=== PATIENT | female | born 1980 | race African-American/Black ===

== ENCOUNTER 2019-05-20 14:57 | Emergency (ER) | payer SELFPAY ==
--- NOTE | 2019-05-20 15:53 | ER Document Report ---
ED General - General Chief Complaint: Psych Problem Stated Complaint: AMS Time Seen by Provider: 05/20/19 15:48 Mode of Arrival: Medic Information source: Emergency Med Personnel Cannot obtain history due to: Altered mental status Notes: 39-year-old black female arrives by EMS with the following story. Patient arrives by EMS after police were called at the [facility] with a female sitting in the parkinglot. Police were called x2 and patient was charged with trespassing after the third time. Patient reports to EMS she was supposed to be at the [facility] and rather than [facility]. Patient is on probation in [place] from [place] per [place] chief knowledge officer.( air defense control officer called the cousin and was given this information to him. ) Patient was seen Tuesday night at [facility] and kept there until 1445 the next day when she was released. Patient rented a [employer] trailer and was driving around [place] without anything in it. This story is from this Silvina Cardona also from officer [place]ahomy spoke to Dr. Busch about this case. EMS were called and patient was placed in the back of the EMS bus and then patient became quite combative. Patient was given ketamine 400 IM and patient became more aggressive and then was given IM 5 mg Versed TRAVEL OUTSIDE OF THE [place] IN LAST 30 DAYS: No - unKnown because patient has decreased sensorium - HPI Onset: Just prior to arrival Onset/Duration: Sudden Quality of pain: No pain Severity: None Pain Level: Denies Associated symptoms: Weakness Exacerbated by: Denies Relieved by: Denies Similar symptoms previously: Yes Recently seen / treated by doctor: Yes - Related Data Allergies/Adverse Reactions: No Known Allergies Allergy (Verified 05/20/19 15:23) Past Medical History - General Information source: Emergency Med Personnel - Silvina Bowers - Social History Smoking Status: Unknown if Ever Smoked Chew tobacco use (# tins/day): No Smoking Education Provided: No Frequency of alcohol use: unKnown Drug Abuse: Other - Unknown Lives with: Family - [facility] Family History: Reviewed & Not Pertinent, Other - unKnown Patient has suicidal ideation: No Patient has homicidal ideation: No Review of Systems - Review of Systems Constitutional: No symptoms reported EENT: No symptoms reported Cardiovascular: No symptoms reported Respiratory: No symptoms reported Gastrointestinal: No symptoms reported Genitourinary: No symptoms reported Female Genitourinary: No symptoms reported Musculoskeletal: No symptoms reported Skin: No symptoms reported Hematologic/Lymphatic: No symptoms reported Neurological/Psychological: See HPI, Weakness, Other - Paranoid delusions Physical Exam - Vital signs Vitals: Pulse Ox 96 05/20/19 15:03 Interpretation: Hypertensive - HEENT Head: Normocephalic Eyes: Normal Conjunctiva: Normal Cornea: Normal Extraocular movements intact: Yes Eyelashes: Normal Pupils: PERRL - Respiratory Respiratory status: No respiratory distress Chest status: Nontender Breath sounds: Normal Chest palpation: Normal - Cardiovascular Rhythm: Regular Heart sounds: Normal auscultation Murmur: No Friction rub: No Erasto's crunch: No - Abdominal Inspection: Normal Distension: No distension Bowel sounds: Normal Tenderness: Nontender - Back Back: Normal - Neurological Neuro grossly intact: No - Patient somnolent upon arrival after Versed and ketamine per EMS Cognition: Confused Orientation: Disoriented to person, Disoriented to place, Disoriented to time, Disoriented to events Shaun Coma Scale Eye Opening: To Pain [place] Coma Scale Verbal: Inappropriate Course - Re-evaluation Re-evalutation: 05/20/19 16:12 DrGill also consulted. - Vital Signs Vital signs: Temp Pulse Resp BP Pulse Ox 98.8 F 12 141/87 H 100 05/20/19 15:06 05/20/19 19:05 05/20/19 19:05 05/20/19 19:05 - Laboratory Result Diagrams: 05/20/19 15:05 05/20/19 15:05 Laboratory results interpreted by me: 05/20/19 05/20/19 05/20/19 15:05 15:05 17:20 Hgb 11.7 L MCV 78 L MCH 25.1 L RDW 16.3 H BUN 5 L Glucose 130 H Ur Leukocyte Esterase MODERATE H Salicylates < 1.0 L Acetaminophen < 10 L - Diagnostic Test Radiology reviewed: Reports reviewed Critical Care Note - Critical Care Note Total time excluding time spent on procedures (mins): 90 Comments: Patient to be kept as a psychiatric hold Discharge - Discharge Clinical Impression: Schizophrenia Qualifiers: Schizophrenia type: unspecified Qualified Code(s): F20.9 - Schizophrenia, unspecified Condition: Good Disposition: OTHER Additional Instructions: This patient to be re- evaluationed by psych
[2019-05-20 16:12] LABS: ABSOLUTE BASOPHILS # (AUTO) 0.1 10^3/uL (0.0-0.2); ABSOLUTE EOSINOPHILS # (AUTO) 0.1 10^3/uL (0.0-0.6); ABSOLUTE LYMPHOCYTES (AUTO) 2.6 10^3/uL (0.5-4.7); ABSOLUTE NEUT (AUTO) 6.2 10^3/uL (1.7-8.2); BASOPHILS % (AUTO) 0.9 % (0-2); EOSINOPHILS % (AUTO) 1.1 % (0-6); HEMATOCRIT 36.3 % (36.0-47.0); HEMOGLOBIN 11.7 g/dL (12.0-15.5); MEAN CORPUSCULAR HEMOGLOBIN 25.1 pg (27.0-33.4); MEAN CORPUSCULAR HGB CONC 32.2 g/dL (32.0-36.0); MEAN CORPUSCULAR VOLUME 78 fl (80-97); MONOCYTES % (AUTO) 10.1 % (3-13); PLATELET COUNT 304 10^3/uL (150-450); RED BLOOD COUNT 4.65 10^6/uL (3.72-5.28); RED CELL DISTRIBUTION WIDTH 16.3 % (11.5-14.0); SEGMENTED NEUTROPHILS % (AUTO) 61.9 % (42-78); TOTAL CELLS COUNTED % (AUTO) 100 %
[2019-05-20 16:15] LABS: ALBUMIN 3.7 g/dL (3.5-5.0); ALKALINE PHOSPHATASE 84 U/L (38-126); ANION GAP 10 (5-19); ASPARTATE AMINO TRANSFERASE 22 U/L (14-36); BILIRUBIN,TOTAL 0.2 mg/dL (0.2-1.3); BLOOD UREA NITROGEN 5 mg/dL (7-20); CALCIUM 9.3 mg/dL (8.4-10.2); CARBON DIOXIDE 23 mmol/L (22-30); CHLORIDE 107 mmol/L (98-107); GLUCOSE 130 mg/dL (75-110); POTASSIUM 4.4 mmol/L (3.6-5.0); TOTAL PROTEIN 6.7 g/dL (6.3-8.2)
[2019-05-20 16:17] LABS: ACETAMINOPHEN < 10 ug/mL (10-30); ALCOHOL < 10 mg/dL (NONE DETECTED); SALICYLATE < 1.0 mg/dL (2.0-20.0)
[2019-05-20 17:45] LABS: APPEARANCE,URINE SLIGHTLY-CLOUDY; BILIRUBIN,URINE NEGATIVE (NEGATIVE); COLOR,URINE YELLOW; GLUCOSE, URINE NEGATIVE (NEGATIVE); KETONES,URINE NEGATIVE (NEGATIVE); LEUKOCYTE ESTERASE,URINE MODERATE (NEGATIVE); NITRITE,URINE NEGATIVE (NEGATIVE); PROTEIN,URINE NEGATIVE (NEGATIVE); URINE SPECIFIC GRAVITY 1.008; UROBILINOGEN,URINE NEGATIVE mg/dL (<2.0)
[2019-05-20 17:55] LABS: URINE AMPHETAMINES SCREEN NEGATIVE; URINE BARBITURATES SCREEN NEGATIVE; URINE COCAINE SCREEN NEGATIVE; URINE MARIJUANA (THC) SCREEN NEGATIVE; URINE METHADONE SCREEN NEGATIVE; URINE PHENCYCLIDINE SCREEN NEGATIVE
[2019-05-20 17:58] LABS: URINE BENZODIAZEPINES SCREEN UNCONFIRMED POSITIVE
--- NOTE | 2019-05-20 19:07 | RADIOLOGY REPORT (SQ) ---
EXAM DESCRIPTION: CT HEAD WITHOUT COMPLETED DATE/TIME: 05/20/2019 6:57 pm REASON FOR STUDY: ms change COMPARISON: None. TECHNIQUE: Axial images acquired through the brain without intravenous contrast. Images reviewed wi th bone, brain and subdural windows. Additional sagittal and coronal reconstructions were generated. Images stored on PACS. All CT scanners at this facility use dose modulation, iterative reconstruction, and/or weight based d osing when appropriate to reduce radiation dose to as low as reasonably achievable (ALARA). [facility]: Dose Right [facility]: CareDose [facility]: Dose Right [facility]: Teradose 4D [facility]: Sensorin RADIATION DOSE: CT Rad equipment meets quality standard of care and radiation dose reduction techniq ues were employed. CTDIvol: 53.2 mGy. DLP: 964 mGy-cm. mGy. LIMITATIONS: Motion artifact. FINDINGS: VENTRICLES: Normal size and contour. CEREBRUM: No masses. No hemorrhage. No midline shift. No evidence for acute infarction. Normal gra y/white matter differentiation. No areas of low density in the white matter. CEREBELLUM: No masses. No hemorrhage. No alteration of density. No evidence for acute infarction. EXTRAAXIAL SPACES: No fluid collections. No masses. ORBITS AND GLOBE: No intra- or extraconal masses. Normal contour of globe without masses. CALVARIUM: No fracture. PARANASAL SINUSES: No fluid or mucosal thickening. SOFT TISSUES: No mass or hematoma. OTHER: No other significant finding. IMPRESSION: NO ACUTE INTRACRANIAL IMAGING FINDINGS. EVIDENCE OF ACUTE STROKE: NO. COMMENT: Quality ID # [id number]: Final reports with documentation of one or more dose reduction techniques (e.g., Automated exposure control, adjustment of the mA and/or kV according to patient size, use of iterative reconstruction technique) TECHNICAL DOCUMENTATION: JOB ID: [id number]- All Rights Reserved Reading location - IP/workstation name: [email or web address]
--- NOTE | 2019-05-21 00:17 | ER Document Report ---
Doctor's Note Notes: 05/21/19 00:13 Patient was brought in by EMS following contact with [employer] in which she presented confused. Upon entering the ambulance, patient became combative requiring 400 mg of Ketamine, of which she had an adverse reaction, then requiring 2 mg of Ativan. Upon arrival to the ED the Patient was sleeping soundly and unavailable for evaluation. Please MH Note by Becca Riggs for collateral information. Patient is placed on IVC Petition.
--- NOTE | 2019-05-21 00:26 | EKG REPORT ---
SEVERITY:- NORMAL ECG - SINUS RHYTHM : Confirmed by: Deepthi Diallo 21-May-2019 00:25:54
[2019-05-21] MEDS ORDERED: LORAZEPAM 1 MG TABLET PO ONE (01:05)
[2019-05-21] MEDS ORDERED: BENZTROPINE MESYLATE 1 MG TABLET PO ONE (14:04)
[2019-05-21] MEDS ORDERED: CHLORPROMAZINE HCL 50 MG TABLET PO ONE (14:04)
--- NOTE | 2019-05-21 15:16 | EKG REPORT ---
SEVERITY:- NORMAL ECG - SINUS RHYTHM : Confirmed by: Mojgan Love MD 21-May-2019 15:16:02
--- NOTE | 2019-05-21 15:21 | ER Document Report ---
Doctor's Note Notes: 05/21/19 15:17 Patient was moved from room 18 to room 45. Patient is attempting to leave out of the room multiple times stating that she is going to go home. Patient is IVC'd. I did discuss the patient's case with Dr. Faith who is my supervising attending who recommends speaking with mental health in regards to giving her a dose of 50 mg of Thorazine IM. Patient did receive Thorazine 50 mg p.o. as a one-time dose about 1 hour ago as well as 1 mg of Cogentin at the same time. No other medications were ordered due to recommendations to obtain a new EKG as the mental health staff was concerned that her QTC was 441. A QTC of 441 is normal. We did repeat her EKG at 1415. Patient is in a sinus rhythm with a heart rate of 90, MT interval is 156, QT is 336 and QTc is 411. Patient has a normal axis deviation and does not appear to have any significant changes from her previous EKG. I did discuss this with mental health who will update the medication recommendations. Dr. Faith did recommend obtaining a [place] level as it appears the patient was on lithium 6 months ago. Per mental health staff the patient has not been on lithium for 6 months. They state they got this information from the significant other. 05/21/19 16:47 Mental health made recommendations in regards to psychiatric medications, I did discuss this with my attending, Dr. Faith - to include Thorazine 100 mg IM Q6 and Cogentin 1 mg IM BID. Will add these recommendations to med rec.
[2019-05-21] MEDS ORDERED: CHLORPROMAZINE HCL INJ 25 MG/1 ML AMPULE IM SCH (17:00)
--- NOTE | 2019-05-21 17:45 | PSYCHOLOGICAL NOTE ---
Psych Note - Psych Note Date seen by psych provider: 05/21/19 Time seen by psych provider: 08:40 Psych Note: Reason for Consult: AMS Patient reports the police brought her [facility] because "they decided I need to be evaluated." Patient is able to fully demonstrate orientation. She reports that she was in [place] however drove down to [facility] to live. She reports that she does not have family here however she is close with people in congregational. She reports she was once diagnosed with depression and then once with bipolar however does not believe she has a mental health diagnosis. Patient provides consent to her Nataliia to be contacted and provides contact information. Patient reports that she missed a congregational yesterday as services were at 2 PM and disclose that she is hopes she would be able to be discharged. Clinician attempted contact to patient's , Nataliia, at [phone]: voicemail is full. Patient spoke with patient's weapons officer naval activity who arrived to check on patient. He reports that the patient is currently on probation up in [place] and did not have permission to come to [place]. He states that he spoke with the retail loan officer and is trying to ensure that she does not get a warrant for her arrest. He reports that she has been off for a while. Impression/Plan: Patient is recommended from IVC. Medication recommendations have been provided. She will be re-evaluated. Dr. Rice was consulted on the care and management of this patient; attending physician is in agreement with recommendations and disposition.
[2019-05-21] MEDS ORDERED: BENZTROPINE MESYLATE INJ 2 MG/2 ML AMPULE IM SCH (18:00)
[2019-05-21] MEDS: CHLORPROMAZINE HCL INJ 25 MG/1 ML AMPULE IM SCH ×2 (18:31→23:35)
[2019-05-22 02:19] VITALS: BP 112/67
== END 2019-05-22 02:44 | disposition other institution (70) ==
LOC: EDBD 14:57 → ER 14:57
DX: F20.9 Schizophrenia, unspecified (principal); R41.82 Altered mental status, unspecified; R53.1 Weakness
CPT/HCPCS: 36415; 70450; 80053; 80178; 80307; 81001; 84443; 85025; 93005; 93010; 96372; 99291; 99292